=== PATIENT | female | born 1960 | race Two or more races ===

== ENCOUNTER 2022-08-25 19:37 | Emergency (ER) | payer MEDICAID, OTHER ==
[~2022-08-25] VITALS: Ht 160 cm; Wt 78.1 kg
[2022-08-25 20:11] VITALS: BP 144/79
[2022-08-25] MEDS ORDERED: CYCL-837 PO (23:29)
[2022-08-25] MEDS ORDERED: IBUP800T27 PO (23:29)
[2022-08-25] MEDS ORDERED: KETOROLAC TROMETH 60MG/2ML VIAL IM ONE (23:30)
[2022-08-25] MEDS ORDERED: NAP500T PO (23:39)
== END 2022-08-26 00:10 | disposition home or self-care (01) ==
LOC: ER 19:37
DX: M54.41 Lumbago with sciatica, right side (principal); Z79.1 Long term (current) use of non-steroidal anti-inflammatories (NSAID); Z79.899 Other long term (current) drug therapy
CPT/HCPCS: 96372; 99283; J1885

== ENCOUNTER 2022-10-11 13:09 | Emergency (ER) | payer MEDICAID ==
[~2022-10-11] VITALS: Ht 162.6 cm; Wt 81.0 kg
[~2022-10-11 13:09] MED LIST: CYCL-837 PO; NAP500T PO
[2022-10-11] MEDS ORDERED: PANTOPRAZOLE 40 MG/10 ML VIAL INJ IV ONE (14:15)
[2022-10-11] MEDS ORDERED: ONDANSETRON HCL 4 MG/2 ML VIAL IV ONE (14:15)
[2022-10-11] MEDS ORDERED: SODIUM CHLORIDE 0.9% 1,000 ML IVB ONE (14:15)
[2022-10-11] MEDS ORDERED: DIPHENOXYLATE W/ATROPINE 2.5 MG TAB PO ONE (14:15)
[2022-10-11 14:54] LABS: Basophils # (auto) 0 10 ^3/uL (0-0.2); Eosinophils # (auto) 0 10 ^3/uL (0-0.8); Eosinophils % (auto) 0.1 % (0.0-7.0); Hematocrit 38.9 % (36.0-46.0); Hemoglobin 13.2 g/dL (12.2-16.2); Lymphocytes # (auto) 0.9 10 ^3/uL (0.4-5.4); Lymphocytes % (auto) 6.7 % (10.0-50.0); Mean Corpuscular Hemoglobin 28.8 pg (28.0-32.0); Mean Corpuscular Hgb Conc. 33.8 g/dL (32.0-36.0); Monocytes # (auto) 0.7 10 ^3/uL (0-1.3); Monocytes % (auto) 5.3 % (0.0-12.0); Neutrophils # (auto) 11.6 10 ^3/uL (1.6-8.6); Neutrophils % (auto) 87.9 % (37.0-80.0); Red Blood Cells 4.58 10^6/uL (4.0-5.20); Red Cell Distribution Width 13.8 % (11.8-14.3); White Blood Cell 13.2 10^3/uL (4.4-10.8)
[2022-10-11 15:11] LABS: Albumin 3.3 g/dL (3.4-5.0); BUN/Creatinine Ratio 24.7; Calcium 8.7 mg/dL (8.5-10.1); Magnesium 1.9 mg/dL (1.6-2.6); Potassium 3.3 mmol/L (3.5-5.1)
[2022-10-11 15:14] LABS: Bilirubin, Total 1.1 mg/dL (0.2-1.0); Total Protein 6.8 g/dL (6.4-8.2)
[2022-10-11 16:21] LABS: Urine Bacteria NONE SEEN /hpf (None Seen); Urine Blood Negative /uL (Negative); Urine Mucus FEW (None Seen); Urine Specific Gravity 1.029 (1.001-1.035); Urine WBC 38 /hpf (0 - 5)
[2022-10-11 17:43] VITALS: BP 129/69
[2022-10-11] MEDS ORDERED: cefTRIAXone 1GM/50ML D5W 50 ML IV ONE (18:30)
[2022-10-11] MEDS ORDERED: ONDANSETRON HCL 4 MG/2 ML VIAL IV PRN (21:15)
[2022-10-11] MEDS ORDERED: ACETAMINOPHEN 325 MG TAB PO PRN (21:15)
[2022-10-11] MEDS ORDERED: HYDROcodone-ACET 5/325MG TAB PO PRN (21:15)
[2022-10-11] MEDS ORDERED: MORPHINE SULFATE INJ 2 MG/ml SYRG IV PRN (21:15)
[2022-10-12] MEDS ORDERED: cefTRIAXone 1GM/50ML D5W 50 ML IV SCH (21:00)
== END 2022-10-11 23:04 | disposition left against medical advice (07) ==
LOC: ER 13:09 → OVERFLOW 21:05 → UNDOADMIN 21:05 → UNDODISIN 23:04
DX: R10.13 Epigastric pain (principal); K80.20 Calculus of gallbladder without cholecystitis without obstruction; N39.0 Urinary tract infection, site not specified; Z20.822 Contact with and (suspected) exposure to COVID-19; Z53.29 Procedure and treatment not carried out because of patient's decision for other reasons; Z98.890 Other specified postprocedural states
CPT/HCPCS: 36415; 74176; 76705; 80053; 81001; 83690; 83735; 85025; 87426; 93005; 96365; 96367; 96375; 99285; C9113; J0696; J2405; 96361; 96374; G0378